=== PATIENT | male | born 1970 | race Caucasian/White ===

== ENCOUNTER 2023-03-01 02:52 | Emergency (ER) | payer OTHER ==
[~2023-03-01] VITALS: Ht 177.8 cm; Wt 104.3 kg
[2023-03-01] MEDS ORDERED: COZAAR50 MG (03:12)
[2023-03-01] MEDS ORDERED: CEPHALEXIN500 MG PO (07:09)
[2023-03-01] MEDS ORDERED: KETO10TA2 PO (07:09)
== END 2023-03-01 07:26 ==
LOC: ER 02:52
DX: S01.02XA Laceration with foreign body of scalp, initial encounter (principal); V03.19XA Pedestrian with other conveyance injured in collision with car, pick-up truck or van in traffic accident, initial encounter; Y92.413 State road as the place of occurrence of the external cause; S69.82XA Other specified injuries of left wrist, hand and finger(s), initial encounter; S69.81XD Other specified injuries of right wrist, hand and finger(s), subsequent encounter

== ENCOUNTER 2023-03-09 10:20 | Emergency (ER) | payer OTHER ==
[~2023-03-09] VITALS: Ht 182.9 cm; Wt 99.8 kg
[~2023-03-09 10:20] MED LIST: CEPHALEXIN500 MG PO; COZAAR50 MG; KETO10TA2 PO
== END 2023-03-09 13:00 | disposition home or self-care (01) ==
LOC: ER 10:20
DX: Z48.02 Encounter for removal of sutures (principal)